=== PATIENT | female | born 1960 | race Caucasian/White ===

== ENCOUNTER 2019-04-04 08:39 | Observation (INO) ==
[2019-04-04] MEDS ORDERED: ACETAMINOPHEN 325 MG TABLET PO PRN (11:21)
[2019-04-04] MEDS ORDERED: ONDANSETRON 4 MG/2 ML VIAL IV PRN (12:07)
[2019-04-04] MEDS ORDERED: BISACODYL 5 MG TABLET PO PRN (12:07)
[2019-04-04] MEDS ORDERED: DEXTROSE 50% 25 GM/50 ML VIAL IV PRN ×2 (12:07→12:08)
[2019-04-04] MEDS ORDERED: GLUCAGON 1 MG VIAL IM PRN (12:07)
[2019-04-04] MEDS: ENOXAPARIN 40 MG/0.4 ML SYRINGE SUBCUT SCH (12:44)
[2019-04-04] MEDS: SODIUM CHLORIDE 0.9% 1,000 ML IV SCH ×2 (12:45→22:14)
[2019-04-04 14:06] LABS: Apearance,Urine CLEAR (Clear); Bacteria,Urine Few /HPF (Few); Bilirubin,Urine Negative (Negative); Blood, Urine Small mg/dL (Negative); Glucose,Urine (UA) Negative (Negative); Ketones,Urine Negative (Negative); Nitrite,Urine Negative (Negative); Protein,Urine Negative; RBC,Urine 4 /HPF (0-4); Squamous Epithelial Cell,Urine Occasional /HPF (0-10); Urine Color Yellow (Yellow); Urine Specific Gravity 1.009 (1.001-1.035); Urine Urobilinogen < 2.0 EU/DL (0.2-1.0); WBC,Urine 4 /HPF (0-6)
[2019-04-04] MEDS ORDERED: POTASSIUM CHLORIDE 20 MEQ TABLET PO ONE (14:18)
[2019-04-04] MEDS: INSULIN REGULAR 100 UNIT/ML SUBCUT SCH ×2 (16:50→22:13)
[2019-04-04] MEDS ORDERED: PILOCARPINE 5 MG TABLET PO SCH (21:00)
[2019-04-04] MEDS ORDERED: ZALEPLON 5 MG CAPSULE PO SCH (21:00)
[2019-04-04] MEDS ORDERED: amLODIPine 2.5 MG TABLET PO SCH (21:30)
[2019-04-04] MEDS: levETIRAcetam 500 MG TABLET PO SCH (22:10)
[2019-04-04] MEDS: METHADONE 10 MG TABLET PO SCH (22:11)
[2019-04-04] MEDS: NABUMETONE 500 MG TABLET PO SCH (22:12)
[2019-04-04] MEDS: DOCUSATE SODIUM 100 MG CAPSULE PO SCH (22:12)
[2019-04-04] MEDS: NORTRIPTYLINE 25 MG CAPSULE PO SCH (22:13)
[2019-04-05 06:13] LABS: Basophils % 0.5 % (0.0-0.8); Eosinophils # 0.1 10*3/uL (0.0-0.87); Eosinophils % 1.5 % (0.00-10.9); Hematocrit 37.5 VOL% (35.7-47.0); Immature Granulocytes % 0.3 %; Immature Granulocytes Absolute 0.01 #; Lymphocytes # 1.4 10*3/uL (1.4-4.0); Lymphocytes % 34.8 % (21.3-54.2); Mean Platelet Volume 10.4 FL (9.6-12.0); Neutrophils % 51.9 % (38.7-73.9); Platelet Count 160 T/CUMM (130-400); Red Blood Count 4.26 MC/CUMM (3.8-5.5); Red Cell Distribution Width 12.7 % (9.3-17.3)
[2019-04-05 06:28] LABS: Calcium 8.3 MG/DL (8.5-10.1); Osmolality,Calculated 271.8 MOS/KG (273-304)
[2019-04-05 06:39] LABS: Risk Ratio 3.82; Thyroid Stimulating Hormone 1.82 uIU/ml (0.358-3.74); VLDL CHOLESTEROL 21.8 MG/DL
[2019-04-05] MEDS ORDERED: ESTRADIOL 1 MG TABLET PO SCH (09:00)
[2019-04-05] MEDS ORDERED: QUEtiapine 25 MG TABLET PO SCH (09:00)
[2019-04-05] MEDS ORDERED: PANTOPRAZOLE 40 MG TABLET PO SCH (09:00)
[2019-04-05] MEDS ORDERED: GABAPENTIN 300 MG CAPSULE PO SCH (09:00)
[2019-04-05] MEDS: INSULIN REGULAR 100 UNIT/ML SUBCUT SCH ×2 (09:10→12:21)
[2019-04-05] MEDS: levETIRAcetam 500 MG TABLET PO SCH (10:09)
[2019-04-05] MEDS: NORTRIPTYLINE 25 MG CAPSULE PO SCH (10:10)
[2019-04-05] MEDS: DOCUSATE SODIUM 100 MG CAPSULE PO SCH (10:11)
[2019-04-05] MEDS: NABUMETONE 500 MG TABLET PO SCH (10:22)
[2019-04-05] MEDS: METHADONE 10 MG TABLET PO SCH ×2 (10:22→15:13)
[2019-04-05] MEDS ORDERED: cefTRIAXone 1,000 MG in SYRINGE 1 EACH IV SCH (11:00)
[2019-04-05] MEDS ORDERED: MAGNESIUM SULF RIDER 4 GM in PREMIX 1 EACH IV PRN (11:34)
[2019-04-05] MEDS ORDERED: MAGNESIUM SULF RIDER 2 GM in PREMIX 1 EACH IV PRN (11:34)
[2019-04-05] MEDS: SODIUM CHLORIDE 0.9% 1,000 ML IV SCH (12:30)
[2019-04-05] MEDS: ENOXAPARIN 40 MG/0.4 ML SYRINGE SUBCUT SCH (15:13)
[2019-04-05 20:34] VITALS: BP 163/84
[2019-04-06] MEDS ORDERED: amLODIPine 5 MG TABLET PO SCH (21:00)
== END 2019-04-05 17:40 | disposition home or self-care (01) ==
LOC: N.5E → SUATTDRO 10:02
PROVIDERS: ADMIT Internal Medicine; ATTEND Internal Medicine